=== PATIENT | male | born 1990 | race Caucasian/White ===

== ENCOUNTER 2020-12-04 12:44 | Emergency (ER) | payer OTHER ==
[2020-12-04 12:55] VITALS: TEMP 98.2; BMI 23.6
[2020-12-04] MEDS ORDERED: PROPOFOL 200 MG/20 ML VIAL IVPUSH ONE ×2 (12:55→14:21)
[2020-12-04] MEDS ORDERED: PROPOFOL 1,000,000 MCG/100 ML VIAL ONE (13:17)
[2020-12-04 13:21] LABS: BASO % 1.8 % (0-2.0); HEMATOCRIT 38.1 % (35.4-49); HEMOGLOBIN 12.6 GM/dl (11.7-16.9); LYMPH % 10.6 % (8-40); MCH 31.6 pg (25.7-33.7); MCHC 33.2 g/dl (32.0-35.9); MEAN CELL VOLUME 95.4 fl (80-96); MEAN PLT VOLUME 8.4 fl (7.5-11.1); MONO % 7.9 % (3.8-10.2); NEUT % 78.7 % (42.8-82.8); PLATELET COUNT 284 K/MM3 (134-434); RBC 3.99 M/mm3 (4.00-5.60); RDW 11.9 % (11.9-15.9); WHITE BLOOD COUNT 7.7 K/mm3 (4.0-10.8)
[2020-12-04 13:59] LABS: BILIRUBIN,TOTAL 0.7 mg/dl (0.2-1); CALCIUM 9.1 mg/dl (8.5-10); CREATININE 0.9 mg/dl (0.55-1.3); TOT PROT 6.4 g/dl (6.4-8.2)
[2020-12-04 14:35] LABS: POTASSIUM 4.5 mmol/L (3.5-5.1)
[2020-12-04] MEDS ORDERED: SODIUM CHLORIDE 0.9% 1000 ML INFUS.BAG IV ONE (15:10)
[2020-12-04 17:35] VITALS: BP 143/74; PULSE 69
== END 2020-12-04 17:01 ==
LOC: FER 12:44 → FM/S 14:22 → UNDOADMIN 14:22 → FER 17:01
PROC: 3E023BZ Introduction of Anesthetic Agent into Muscle, Percutaneous Approach (ICD-10-PCS; principal; 2020-12-04)
DX: S42.91XA Fracture of right shoulder girdle, part unspecified, initial encounter for closed fracture (principal)
CPT/HCPCS: 36415; 70450-TC; 73030-TC-RT-FY; 73200-TC-RT; 80053; 85025; 99285-25; C9803; U0003